=== PATIENT | male | born 2000 | race Asian ===

== ENCOUNTER 2020-07-16 00:53 | Inpatient (IN) ==
[2020-07-16 01:18] LABS: Basophils # (auto) 0.01 K/uL (0-0.2); Basophils % (auto) 0.1 %; Hematocrit (blood only) 49.3 % (42-52); Hemoglobin 17.3 g/dL (14.0-18.0); Immature Granulocytes # (auto) 0.03 K/uL (0.00-0.02); Immature Granulocytes % (auto) 0.2 %; Lymphocytes # (auto) 1.24 K/uL (1.2-3.4); Lymphocytes % (auto) 10.1 %; Mean Corpuscular Hgb Conc 35.1 g/dL (32-36); Mean Corpuscular Volume 91.3 fL (80-100); Mean Platelet Volume 10.2 fL (7.4-10.4); Monocytes # (auto) 0.56 K/uL (0.11-0.59); Monocytes % (auto) 4.5 %; Neutrophils # (auto) 10.47 K/uL (1.4-6.5); Neutrophils % (auto) 85.1 %; Platelet Count 265 K/uL (130-400); RDW Coefficient of Variation 11.9 % (11.5-14.5); RDW Standard Deviation 39.8 fL (36.4-46.3); White Blood Count 12.31 K/uL (4.8-10.8)
[2020-07-16 01:35] LABS: Albumin Level 4.6 gm/dl (3.4-5.0); BUN Creatinine Ratio 10.4 (10-20); Calcium 8.8 mg/dl (8.5-10.1); Creatinine Clr Calc Pharmacy 89.4 ml/min; Est GFR (African American) 109.9; Est GFR (Non-African American) 94.8; Potassium 3.5 mmol/L (3.5-5.1)
[2020-07-16 01:46] LABS: Acetaminophen < 2 ug/ml (10-30); Albumin Globulin Ratio 1.4 (0.9-2); Bilirubin,Total 0.8 mg/dl (0.2-1); Globulin 3.3 gm/dl (2.5-4.0); Thyroid Stimulating Hormone 0.179 uIu/ml (0.300-4.500); Total Protein 7.9 gm/dl (6.4-8.2)
[2020-07-16 01:47] LABS: Salicylate < 1.7 mg/dl (2.8-20)
[2020-07-16 01:58] LABS: T4 Free Thyroxine 1.31 ng/dl (0.8-1.6)
[2020-07-16 02:19] LABS: Appearance Urine Clear (Clear); Bilirubin Urine Negative (Negative); Blood Urine Negative (Negative); Color Urine Yellow; Glucose Urine UA Negative (Negative); Ketones Urine Trace (Negative); Leukocyte Esterase Urine Negative (Negative); Nitrite Urine Negative (Negative); Protein Urine Negative (Negative); Specific Gravity Urine 1.012 (1.000-1.030); Urobilinogen Urine Negative (Negative); pH Urine 6.5 (4.5-7.5)
[2020-07-16 02:39] LABS: Amphetamines+Metham, Urine Neg (Neg); Barbiturates, Urine Neg (Neg); Benzodiazepine, Urine Neg (Neg); Cocaine, Urine Neg (Neg); MDMA (Ecstacy), Urine Neg (Neg); Methadone, Urine Neg (Neg); Opiate, Urine Neg (Neg); Phencyclidine, Urine Neg (Neg)
--- NOTE | 2020-07-16 04:17 | Emergency Department Note ---
History of Present Illness General Chief complaint: Mental Health Evaluation Time Seen by Provider: 07/16/20 01:00 Source: patient and police Mode of arrival: other (Police cruiser) Limitations: no limitations History of Present Illness Provider complaint: Suicidal ideation This patient is a 20-year-old male who presents emergency department after calling 911 from his vehicle in a parked location telling the dispatcher that he intended to jump off a tigre in order to commit suicide. Patient states he has been feeling suicidal for some time because his parents do not love him. The thing he lives the most in this world is his car "because it just works and has no feelings." Patient states his family is "overse[place]" and he has no close contacts in this country. He states he did not actually intend to jump off of a tigre but rather to overdose on pills. He also states he did not actually have the pills in the vehicle with him. He did tell the service dispatcher that he intended to attack the officers upon their arrival. He states he was hoping this would keep them from trying to find him. He states he just wanted to talk to somebody that he "did not know" when he called 911. Per the 302 warrant, the patient requested to be shot by police on multiple occasions. He asked them what would happen if he reached for the gun. The patient states he intended to in his vehicle. He admits to seeing a psychiatrist about 6 years ago but "that tushar was just in it for the money." He admits he has a distressed for all medical providers due to his history with this psychiatrist. Patient declines to elaborate. He also will not go into detail about where his family lives or why he feels his parents do not love him. He denies any significant substance abuse however states he had 6 beers tonight. He states he does smoke cigarettes. Home Medications Home Medications Medication Instructions Recorded Confirmed Type No Known Home Medications 07/16/20 07/16/20 History Allergies Allergy/AdvReac Type Severity Reaction Status Date / Time No Known Allergies Allergy Unverified 07/16/20 02:12 Past Med/Surg History Medical History (Updated 07/16/20 @ 06:44 by Shari Redman MD) No significant past medical history Social History (Updated 07/16/20 @ 04:23 by Shari Redman MD) Smoking Status: Current some day smoker Tobacco Type: Cigarettes Hx Alcohol Use: Yes Preferred Language: Polish Communication Ability: Effective Maintenance Associate Required: No Beliefs That Will Affect Care: None current occupational status: student current occupation: economics student Feels Safe at Home: Yes Assistive Devices: Glasses Review of Systems See HPI for pertinent positives & negatives. and A total of 10 systems reviewed and were otherwise negative Physical Exam Vital Signs Vital Signs - 24 hr 07/16/20 00:53 07/16/20 02:41 07/16/20 04:00 Temperature 37.2 C Temperature Source Oral Pulse Rate 127 H Pulse Rate [Left Finger] 103 H 92 H Respiratory Rate 18 14 18 Respiratory Effort / Characteristics Non-Labored Spontaneous Respiratory Depth Normal Blood Pressure 102/77 Blood Pressure [Right Arm] 96/80 L 110/71 Blood Pressure Mean 85 Blood Pressure Mean [Right Arm] 85 84 Blood Pressure Position [Right Arm] Sitting Pulse Oximetry 99 99 100 Oxygen Delivery Method Room Air Room Air Room Air Sepsis Recent Fever Within 48 Hours No Sepsis New/Unexplained Change in Mental Status No Sepsis Action Taken by Nursing No Action Required Vital signs reviewed. General: Well-appearing 20 yo male, in no significant distress. HEENT: No scleral icterus, PERRLA, neck supple. Atraumatic. Cardiovascular: Regular rate and rhythm, no extra sounds. Pulmonary: Clear to auscultation bilaterally, normal work of breathing. Abdomen: Soft, nontender, nondistended, positive bowel sounds. Musculoskeletal: Atraumatic, no peripheral edema. Neurologic: Patient awake alert and oriented x 3 Psych: +SI, -HI Skin: Warm, dry, no rash Medical Decision Making Differential Diagnosis Mood disorder, infection, hypoglycemia, electrolyte abnormalities, cardiac sources, intracerebral event, toxicologic, trauma, neurologic, as well as other pathologies. Medical Records Attestation: I reviewed the patient's medical records. Home Medications Current Medication List: was personally reviewed by me Laboratory Data Attestation: I reviewed the patient's lab results. Result diagrams: 07/16/20 01:04 07/16/20 01:04 Lab Results 07/16/20 07/16/20 07/16/20 Range/Units 01:04 01:04 01:04 WBC 12.31 H (4.8-10.8) K/uL RBC 5.40 (4.7-6.1) M/uL Hgb 17.3 (14.0-18.0) g/dL Hct 49.3 (42-52) % MCV 91.3 (80-100) fL MCH 32.0 (25-34) pg MCHC 35.1 (32-36) g/dL RDW Std Deviation 39.8 (36.4-46.3) fL RDW Coeff of Rito 11.9 (11.5-14.5) % Plt Count 265 (130-400) K/uL MPV 10.2 (7.4-10.4) fL Immature Gran % (Auto) 0.2 % Neut % (Auto) 85.1 % Lymph % (Auto) 10.1 % Sac % (Auto) 4.5 % Eos % (Auto) 0.0 % Baso % (Auto) 0.1 % Neut # (Auto) 10.47 H (1.4-6.5) K/uL Lymph # (Auto) 1.24 (1.2-3.4) K/uL Sac # (Auto) 0.56 (0.11-0.59) K/uL Eos # (Auto) 0.00 (0-0.5) K/uL Baso # (Auto) 0.01 (0-0.2) K/uL Immature Gran # (Auto) 0.03 H (0.00-0.02) K/uL Sodium 141 (136-145) mmol/L Potassium 3.5 (3.5-5.1) mmol/L Chloride 107 (98-107) mmol/L Carbon Dioxide 27 (21-32) mmol/L Anion Gap 7.0 (3-11) BUN 11 (7-18) mg/dl Creatinine 1.10 (0.6-1.4) mg/dl Est Cr Clr Drug Dosing 89.4 ml/min Est GFR ( Amer) 109.9 Est GFR (Non-Af Amer) 94.8 BUN/Creatinine Ratio 10.4 (10-20) Glucose 87 (70-99) mg/dl Calcium 8.8 (8.5-10.1) mg/dl Total Bilirubin 0.8 (0.2-1) mg/dl AST 10 L (15-37) U/L ALT 19 (12-78) U/L Alkaline Phosphatase 83 (45-117) U/L Total Protein 7.9 (6.4-8.2) gm/dl Albumin 4.6 (3.4-5.0) gm/dl Globulin 3.3 (2.5-4.0) gm/dl Albumin/Globulin Ratio 1.4 (0.9-2) TSH 0.179 L (0.300-4.500) uIu/ml Free T4 1.31 (0.8-1.6) ng/dl Urine Color Urine Appearance (Clear) Urine pH (4.5-7.5) Ur Specific Cyclone (1.000-1.030) Urine Protein (Negative) Urine Glucose (UA) (Negative) Urine Ketones (Negative) Urine Blood (Negative) Urine Nitrite (Negative) Urine Bilirubin (Negative) Urine Urobilinogen (Negative) Ur Leukocyte Esterase (Negative) Salicylates < 1.7 L (2.8-20) mg/dl Urine Opiates Screen (Neg) Ur Methadone, Qual (Neg) Acetaminophen < 2 L (10-30) ug/ml Urine Barbiturates (Neg) Ur Phencyclidine (PCP) (Neg) U Amphetamin/Meth Scrn (Neg) MDMA (Ecstasy) Screen (Neg) U Benzodiazepines Scrn (Neg) Ur Cocaine Metabolite (Neg) U Marijuana (THC) Screen (Neg) Ethyl Alcohol mg/dL (0-3) mg/dl COVID-19 Eval Order SARS-CoV-2, RNA, NAAT (NEGATIVE) 07/16/20 07/16/20 07/16/20 Range/Units 01:04 02:00 02:00 WBC (4.8-10.8) K/uL RBC (4.7-6.1) M/uL Hgb (14.0-18.0) g/dL Hct (42-52) % MCV (80-100) fL MCH (25-34) pg MCHC (32-36) g/dL RDW Std Deviation (36.4-46.3) fL RDW Coeff of Rito (11.5-14.5) % Plt Count (130-400) K/uL MPV (7.4-10.4) fL Immature Gran % (Auto) % Neut % (Auto) % Lymph % (Auto) % Sac % (Auto) % Eos % (Auto) % Baso % (Auto) % Neut # (Auto) (1.4-6.5) K/uL Lymph # (Auto) (1.2-3.4) K/uL Sac # (Auto) (0.11-0.59) K/uL Eos # (Auto) (0-0.5) K/uL Baso # (Auto) (0-0.2) K/uL Immature Gran # (Auto) (0.00-0.02) K/uL Sodium (136-145) mmol/L Potassium (3.5-5.1) mmol/L Chloride (98-107) mmol/L Carbon Dioxide (21-32) mmol/L Anion Gap (3-11) BUN (7-18) mg/dl Creatinine (0.6-1.4) mg/dl Est Cr Clr Drug Dosing ml/min Est GFR ( Amer) Est GFR (Non-Af Amer) BUN/Creatinine Ratio (10-20) Glucose (70-99) mg/dl Calcium (8.5-10.1) mg/dl Total Bilirubin (0.2-1) mg/dl AST (15-37) U/L ALT (12-78) U/L Alkaline Phosphatase (45-117) U/L Total Protein (6.4-8.2) gm/dl Albumin (3.4-5.0) gm/dl Globulin (2.5-4.0) gm/dl Albumin/Globulin Ratio (0.9-2) TSH (0.300-4.500) uIu/ml Free T4 (0.8-1.6) ng/dl Urine Color Yellow Urine Appearance Clear (Clear) Urine pH 6.5 (4.5-7.5) Ur Specific Cyclone 1.012 (1.000-1.030) Urine Protein Negative (Negative) Urine Glucose (UA) Negative (Negative) Urine Ketones Trace H (Negative) Urine Blood Negative (Negative) Urine Nitrite Negative (Negative) Urine Bilirubin Negative (Negative) Urine Urobilinogen Negative (Negative) Ur Leukocyte Esterase Negative (Negative) Salicylates (2.8-20) mg/dl Urine Opiates Screen Neg (Neg) Ur Methadone, Qual Neg (Neg) Acetaminophen (10-30) ug/ml Urine Barbiturates Neg (Neg) Ur Phencyclidine (PCP) Neg (Neg) U Amphetamin/Meth Scrn Neg (Neg) MDMA (Ecstasy) Screen Neg (Neg) U Benzodiazepines Scrn Neg (Neg) Ur Cocaine Metabolite Neg (Neg) U Marijuana (THC) Screen Pos H (Neg) Ethyl Alcohol mg/dL 34.0 H (0-3) mg/dl COVID-19 Eval Order SARS-CoV-2, RNA, NAAT (NEGATIVE) 07/16/20 07/16/20 Range/Units 02:05 02:05 WBC (4.8-10.8) K/uL RBC (4.7-6.1) M/uL Hgb (14.0-18.0) g/dL Hct (42-52) % MCV (80-100) fL MCH (25-34) pg MCHC (32-36) g/dL RDW Std Deviation (36.4-46.3) fL RDW Coeff of Rito (11.5-14.5) % Plt Count (130-400) K/uL MPV (7.4-10.4) fL Immature Gran % (Auto) % Neut % (Auto) % Lymph % (Auto) % Sac % (Auto) % Eos % (Auto) % Baso % (Auto) % Neut # (Auto) (1.4-6.5) K/uL Lymph # (Auto) (1.2-3.4) K/uL Sac # (Auto) (0.11-0.59) K/uL Eos # (Auto) (0-0.5) K/uL Baso # (Auto) (0-0.2) K/uL Immature Gran # (Auto) (0.00-0.02) K/uL Sodium (136-145) mmol/L Potassium (3.5-5.1) mmol/L Chloride (98-107) mmol/L Carbon Dioxide (21-32) mmol/L Anion Gap (3-11) BUN (7-18) mg/dl Creatinine (0.6-1.4) mg/dl Est Cr Clr Drug Dosing ml/min Est GFR ( Amer) Est GFR (Non-Af Amer) BUN/Creatinine Ratio (10-20) Glucose (70-99) mg/dl Calcium (8.5-10.1) mg/dl Total Bilirubin (0.2-1) mg/dl AST (15-37) U/L ALT (12-78) U/L Alkaline Phosphatase (45-117) U/L Total Protein (6.4-8.2) gm/dl Albumin (3.4-5.0) gm/dl Globulin (2.5-4.0) gm/dl Albumin/Globulin Ratio (0.9-2) TSH (0.300-4.500) uIu/ml Free T4 (0.8-1.6) ng/dl Urine Color Urine Appearance (Clear) Urine pH (4.5-7.5) Ur Specific Cyclone (1.000-1.030) Urine Protein (Negative) Urine Glucose (UA) (Negative) Urine Ketones (Negative) Urine Blood (Negative) Urine Nitrite (Negative) Urine Bilirubin (Negative) Urine Urobilinogen (Negative) Ur Leukocyte Esterase (Negative) Salicylates (2.8-20) mg/dl Urine Opiates Screen (Neg) Ur Methadone, Qual (Neg) Acetaminophen (10-30) ug/ml Urine Barbiturates (Neg) Ur Phencyclidine (PCP) (Neg) U Amphetamin/Meth Scrn (Neg) MDMA (Ecstasy) Screen (Neg) U Benzodiazepines Scrn (Neg) Ur Cocaine Metabolite (Neg) U Marijuana (THC) Screen (Neg) Ethyl Alcohol mg/dL (0-3) mg/dl COVID-19 Eval Order Covid19 [facility] SARS-CoV-2, RNA, NAAT NEGATIVE (NEGATIVE) Blood Pressure Blood Pressure Findings: Normal blood pressure Blood Pressure Disposition: did not require urgent referral MDM Narrative This patient was evaluated and appeared to be in no significant distress. He was calm and cooperative on my evaluation. Patient was medically cleared and evaluated by the mental health casework specialist. The patient's intentions are seemingly unclear and he does change his story. His behavior seems somewhat erratic tonight. He is not clearly voluntary for admission, he states repetitively he would like to go home. I believe the patient is an imminent danger to himself and impulsive. The 302 will be upheld as I do not believe he is reliable to sign in on a 201. Patient has been referred to [facility] for inpatient care. Impression & Plan Suicidal ideation Discharge Plan Visit Data Chief Complaint: Mental Health Evaluation ED Provider: Feroz,Shari B Discharge Problem: Suicidal ideation Patient Disposition: Admitted As Inpatient Discharge Instructions Interventions: ED Discharge Assessment Last Done: 07/16/20 05:22
[2020-07-16 05:23] VITALS: O2SAT 99
[2020-07-16] MEDS ORDERED: hydrOXYzine HCl 25 MG TAB PO PRN (05:57)
[2020-07-16] MEDS ORDERED: BISMUTH SUBSALICYLATE LIQD 236 ML PO PRN (05:57)
[2020-07-16] MEDS ORDERED: MAGNESIUM HYDROXIDE SUSP 30 ML UDC PO PRN (05:57)
[2020-07-16] MEDS ORDERED: ACETAMINOPHEN 325 MG TAB PO PRN (05:57)
[2020-07-16] MEDS ORDERED: ALUMINUM/MAGNESIUM SUSP 30 ML UDC PO PRN (05:57)
[2020-07-16] MEDS ORDERED: SODIUM CHLORIDE 0.65% NA SOLN 45 ML (OCEAN) PRN (05:57)
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
[2020-07-16] MEDS ORDERED: NICOTINE POLACRILEX 2 MG GUM MT PRN (12:15)
--- NOTE | 2020-07-17 13:11 | Psychiatric Progress Note ---
Date of Service July 17, 2020 Impression / Recommendations Impression 20-year-old [employer] student from [place] who was involuntarily committed after calling 911 and reporting suicidal ideation with multiple plans, including suicide by coppersmith helper, and threatening to attack the police if they came to where he was parked in his car. He was poorly cooperative in the ER, and has been vague and evasive with staff, refusing contact with the University or his family. He is minimizing his presenting symptoms and stating that his mood is now improved, and aspects of his story did not make sense; for example he states that after talking to his friend in [place] on the phone yesterday, he decided that he wanted to live and wanted to get help, but he then called 911 and threatened to attack police, and asked police to shoot him multiple times when they arrived to assist him. He then refused to sign into the hospital and had to be involuntarily committed. Inpatient treatment is medically necessary due to the severity of presenting symptoms and risk for suicide if discharged prematurely. As of 07/17/2020 the patient was agreeing to a trial of antidepressant medications. However, at the same time, he remains reluctant to allow us to refer him for aftercare, indicates that he would like to arrange this on his own. He also is reluctant to speak to his parents, although he did allow a friend to contact them and let them know that he is in the hospital. Patient makes frequent refe rences to being socially awkward and otherwise out of step with his peers and other people. He also has difficulty maintaining eye contact, and his thinking at times appears to be somewhat idiosyncratic. He may follow on the autism spectrum, and there do seem to be certain characterologic features that may be in play here. As described by the patient, his mood alterations seem to be dependent on various situations, and the situations that seem to trigger suicidal thoughts or feelings of depression or feelings of anger have to do with feelings of loneliness, rejection, and signals that indicate that he may be an adequate. (1) Suicidal ideation: 07/16 -continue involuntary inpatient treatment, gather information toward the need for further involuntary commitment. -Suicide checks for safety. -Encourage group attendance and participation, work on healthy coping skills and discharge safety plan. -Reviewed recommendations to secure firearms, as well as implications of involuntary commitment (patient can no longer legally own firearms in [place]). We will need to involve roommates or other support to ensure this is done prior to discharge. -Recommend family meeting with parents, which patient is refusing. He did agree to a meeting with one of his roommates, and collateral information re: recent mood, depressive symptoms, SI would be helpful to clarify diagnosis. 07/17 -The patient points out that his thoughts of suicide are intermittent and are largely dependent on situational factors. He describes his current experience in the hospital as being positive. He finds the staff and other patients to be supportive, and he notes that within this context he is not having thoughts of suicide. -Somewhat illogically, the patient has refused to cooperate with our efforts to arrange aftercare. He says that he feels this is something he needs to do on his own. He also is continuing to refuse to talk with his parents. Once pointed out that he says that he is grieving the fact that his parents are not supportive while, at the same time, refusing to talk to them when they offered to help is internally inconsistent. The patient explains that at this point he no longer feels any particular affinity to his parents but, instead, just feels sad that they were not available to him as a child. The patient also explains that in his experience when he talks to his parents it usually devolves into them making depreciating statements or they are simply essentially "ordering" him to take certain steps. (2) Depression: 07/16 -depression NOS, differential includes major depressive disorder, bipolar disorder, personality disorder, adjustment disorder. -Patient endorsed symptoms of MDD yesterday in the ER, but today is stating his mood was only low for the past week in the context of multiple stressors, and has now resolved. Collateral information from roommates would be helpful to cl arify recent mood symptoms and behavioral changes. -Patient is not interested in therapy or outpatient psychiatric care, refusing recommendations for outpatient treatment. -Recommend avoiding alcohol and other recreational drugs due to risk of worsening mood and impairing judgment in the context of multiple stressors/SI. 07/17 -I agree with the diagnosis of unspecified mood disorder. He does not seem to have any history of oly or hypomania, and the difficulty that he describes adjusting socially as been present since latency, so I am not sure that we could call this an adjustment disorder. As above, I believe that the patient may fall at the high functioning and of the autism spectrum. He describes lifelong difficulty negotiating social interactions. He strenuously avoids eye contact, and notes that he is always "awkward" in situations in which he cannot be reassured of acceptance. Also, the patient reports that he has a long-term history of difficulty regulating his mood, and that his mood is largely dependent upon whether he feels excepted, loved, appreciated, and valued. Feelings of abandonment or rejection or failure tend to precipitate depressive symptoms and sometimes thoughts of suicide. Accordingly, there are elements that suggest certain pathologic character traits including borderline personality traits and avoidant personality traits. (The symptoms described seem to be greater and more pervasive than what might be expected in a social anxiety disorder.) -The patient has agreed today to a trial of antidepressant medication. After discussing various options he agreed to venlafaxine ER 37.5 mg, and we will titrate as indicated and tolerated. Confounding this decision is the fact that the patient still is telling the social work staff that while he will take the medicine he will not agree to allow them to schedule aftercare arrangements. This been pointed out to him that he cannot be prescribed the medications without a plan for him to be followed up on an outpatient basis, and he has responded by saying things such as "I can take care of that myself." However, when invited to take care of it himself he does not do it. Risk Factors Assessment Male: Yes : No Do You Have Access To A Gun?: Yes (Owns to guns, at his [facility]) Health Problems: No Mental Health Diagnoses: No Substance Use Disorders: No Previous Attempt: Yes Previous Attempt; Highly Lethal: No Family History of Suicide: No Previous Psychiatric Hospitalization: No Hopelessness: No Smoker: Yes Protective Factors Assessment : No Responsible for Young Children: No Employed: No Stable Relationships: No Supportive Family: No Good Rapport with Provider: No Interval History Chief Complaint "I was thinking about suicide". Review of Systems Sleep Information Total Hours of Sleep: 8.25 Sleep Comments: admitted at 0526 Meal Information Percent Meal Consumed - Breakfast: 100 Percent Meal Consumed - Lunch: 100 Percent Meal Consumed - Dinner: 100 Subjective Subjective Patient was seen & assessed and interval progress reviewed with treatment team. I met with the patient privately in order to assess his current mental status, evaluate his response to treatment, coordinate any necessary changes in the patient's treatment plan together with the patient; address issues, questions and concerns that may arise. We began by my asking the patient to summarize the circumstances that led to the admission. The patient reported that he believes his main problem is difficulty regulating his mood. He notes that problems began in childhood when his parents began to have serious marital problems. He explains, "they were fighting all the time. My father left. He did come back. They got . They remarried." He also notes that he often felt socially isolated, and felt that his parents were primarily absorbed in their business efforts and in their own lives, and often were not available to provide emotional support and guidance. He notes that they do provide substantial financial assistance, but was always aware that his peers seem to have parents to were much more involved and caring. He tells me that as a preteen aged child he made a suicide attempt or gesture by taking a pair of children's scissors and tried to cut his wrist, although he did not break the skin. The patient notes that he is not made any subsequent suicide attempts, but frequently has suicidal ideation. He also reports that his mood tends to plummet when he is experiencing feelings of failure, isolation, or rejection. For example, he re ports that he has made several friends here in [place], but each of them has girlfriends and seemed to refer her to spend most of their time going out with the girlfriends. The patient, who does not have a girlfriend, feels left out and left behind. Within this context, he finds himself feeling depressed and irritable. He may have troubles sleeping, and at times he uses alcohol to console himself. (He claims that he only uses alcohol about once a month and not to the point of intoxication.) When asked to tell me more about his thoughts of suicide, the patient smiled and said, "well, I was going to take an overdose of medicines. But I did not have any medicines." The patient also said that he had been feeling particularly lonely and abandoned when the most recent thought of suicide occurred. His thought was to find a clip of some sort and jump to his . He drove out into the country, took beer with him the idea of getting intoxicated and then finding the courage to jump. He explained that he changed his mind, recognize that he could not bring himself to actually act on his impulses, and called 911 for help. Other stressors include the fact that he apparently has little interest in his college major, namely economics. His explanation for entering economics in the first place was that his grades in public school were poor and, as he put it, "economics was the easiest thing to get into." The patient also tells me that he likes life in [facility] much better than in his hometown near [facility]. He notes that his parents have made it clear that they are not willing to support him unless he is in school, and so he says his long-term plan is to finish his degree at [employer] and then moved to either [place] or [place] in order to enter graduate school, possibly in [place]. I talked to the patient about the fact that almost all people at his approximate age worry about their future. They become aware that their childhood is coming to a close and they faced a number of major decisions, such as career, marriage or other romantic relationships. Uncertainty about the future and what the future may hold for them can sometimes take on monumental proportions, and that from the perspective of age and experience I assured him that it is always possible to reinvent oneself, and decisions that one may feel that one needs to make at the beginning of their life are not nearly as important as people assume them to be. We talked about the movie "The Graduate" as a way of emphasizing that the kinds of concerns she is going through are on at all uncommon for persons his age, and I also assured him that things get better as time goes on. We discussed treatment for depression. He asked a number of questions about medication options and we agreed to try venlafaxine ER 37.5 mg. Material risks and anticipated benefits of venlafaxine were reviewed with the patient and he has several questions and then indicated understanding. Physical Exam Psychiatric Orientation: alert, oriented x 3 and cooperative Apperance: appropriately dressed, appropriately groomed and appeared stated age Eye Contact: + poor eye contact Motor Behavior: steady gait and station Patient's speech was somewhat slow, but was spontaneous and delivered at a normal volume. Affect: + depressed affect However, the patient smiled appropriately a number of times during the encounter. "My mood is pretty good today. This is a special place. He goes up and down depending on what is going on in my life." Thought Process: goal directed thought process Thought Content: reality based without delusions; no delusions Suicidal Thoughts: denies suicidal thoughts The patient reports that he is not currently having any suicidal thoughts. He does recognize that when he returns home he will face many of the stressors that he links with his mood alterations. However, he says that he feels that he is prepared to face them. Homicidal Thoughts: denies homicidal thoughts Hallucinations: no auditory hallucinations Cognition: recent memory grossly intact, remote memory grossly intact, attention grossly intact and language grossly intact Estimated Intelligence: + above average estimated intelligence Insight: + limited insight Judgement: + fair judgement Vital Signs (Past 24 Hours) Last Vital Signs Temp 37 C 07/17/20 06:35 Pulse 70 07/17/20 06:35 Resp 17 07/17/20 06:35 BP 106/63 07/17/20 06:35 Pulse Ox 99 07/16/20 05:58 Results & Data ([facility]) Current Inpatient Medications Current Inpatient Medications: Current Inpatient Medications Acetaminophen (Acetaminophen 325 Mg Tab) 650 mg PO Q4H PRN PRN Reason: Headache or Minor Fever Stop: 08/15/20 05:56 Al Hydrox/Mg Hydrox/Simethicone (Aluminum/Magnesium Susp 30 Ml Udc) 30 ml PO Q4H PRN PRN Reason: GI Upset Stop: 08/15/20 05:56 Bismuth Subsalicylate (Bismuth Subsalicylate Liqd 236 Ml) 15 ml PO PRN PRN PRN Reason: Loose Stool Stop: 08/15/20 05:56 Hydroxyzine HCl (Hydroxyzine Hcl 25 Mg Tab) 50 mg PO HSZ PRN PRN Reason: Insomnia Stop: 08/15/20 05:56 Hydroxyzine HCl (Hydroxyzine Hcl 25 Mg Tab) 25 mg PO Q4H PRN PRN Reason: Anxiety Stop: 08/15/20 05:56 Magnesium Hydroxide (Magnesium Hydroxide Susp 30 Ml Udc) 30 ml PO DAILY PRN PRN Reason: Constipation Stop: 08/15/20 05:56 Nicotine Polacrilex (Nicotine Polacrilex 2 Mg Gum) 1 piece MT PRN PRN PRN Reason: nicotine cravings Stop: 08/15/20 12:14 Sodium Chloride (Sodium Chloride 0.65% Na Soln 45 Ml ([place])) 1 - 2 sprays NA PRN PRN PRN Reason: Nasal Dryness/Congestion Stop: 08/15/20 05:56 Venlafaxine HCl (Venlafaxine Hcl Xr 37.5 Mg Capxr) 37.5 mg PO QAM GERRI Stop: 08/16/20 11:29 Mental Health & Subst Abuse Tx Therapist Name of Therapist: None Audio/Video Technician Name of Audio/Video Technician: None Post Discharge Appointments Primary Care Physician Name Of Family Doctor: Deb (1) Depression Depression Type: unspecified Qualified Code(s): F32.9 - Major depressive disorder, single episode, unspecified
[2020-07-17] MEDS: VENLAFAXINE HCL XR 37.5 MG CAPXR PO SCH (14:38)
[2020-07-18 01:18] LABS: Marijuana Quant, GCMS Urine 104 ng/mL (<5)
--- NOTE | 2020-07-18 07:52 | Psychiatric Progress Note ---
Date of Service July 18, 2020 Impression / Recommendations Impression 20-year-old [employer] student from [place] who was involuntarily committed after calling 911 and reporting suicidal ideation with multiple plans, including suicide by copy cutter, and threatening to attack the police if they came to where he was parked in his car. He was poorly cooperative in the ER, and has been vague and evasive with staff, refusing contact with the University or his family. He has minimized his presenting symptoms and is unwilling to allow contact with his family or referrals for outpatient treatment. Although he agreed to a trial of venlafaxine XR yesterday, he is now stating he feels high on it, like he did when he used MDMA, and does not want to continue the medication. He continues to give conflicting reports at times, there does appear to be a characterological component. Inpatient treatment remains medically necessary due to the severity of his symptoms and risk for suicide if discharged prematurely, and his unwillingness to engage fully in treatment or allow appropriate interventions/aftercare. (1) Suicidal ideation: 07/16 -continue involuntary inpatient treatment, gather information toward the need for further involuntary commitment. -Suicide checks for safety. -Encourage group attendance and participation, work on healthy coping skills and discharge safety plan. -Reviewed recommendations to secure firearms, as well as implications of involuntary commitment (patient can no longer legally own firearms in [place]). We will need to involve roommates or other support to ensure this is done prior to discharge. -Recommend family meeting with parents, which patient is refusing. He did agree to a meeting with one of his roommates, and collateral information re: recent mood, depressive symptoms, SI would be helpful to clarify diagnosis. 07/17 -The patient points out that his thoughts of suicide are intermittent and are largely dependent on situational factors. He describes his current experience in the hospital as being positive. He finds the staff and other patients to be supportive, and he notes that within this context he is not having thoughts of suicide. -Somewhat illogically, the patient has refused to cooperate with our efforts to arrange aftercare. He says that he feels this is something he needs to do on his own. He also is continuing to refuse to talk with his parents. Once pointed out that he says that he is grieving the fact that his parents are not supportive while, at the same time, refusing to talk to them when they offered to help is internally inconsistent. The patient explains that at this point he no longer feels any particular affinity to his parents but, instead, just feels sad that they were not available to him as a child. The patient also explains that in his experience when he talks to his parents it usually devolves into them making depreciating statements or they are simply essentially "ordering" him to take certain steps. 07/18 -Patient is denying SI here, but has done little to address the factors that led to his suicide plans/behavior at the time of presentation. He continues to refuse outpatient treatment and contact with his family. He did allow contact with his roommate yesterday, who agreed to secure the gun so the patient would not have access to them. (2) Depression: 07/16 -depression NOS, differential includes major depressive disorder, bipolar disorder, personality disorder, adjustment disorder. -Patient endorsed symptoms of MDD yesterday in the ER, but today is stating his mood was only low for the past week in the context of multiple stressors, and has now resolved. Collateral information from roommates would be helpful to clarify recent mood symptoms and behavioral changes. -Patient is not interested in therapy or outpatient psychiatric care, refusing recommendations for outpatient treatment. -Recommend avoiding alcohol and other recreational drugs due to risk of worsening mood and impairing judgment in the context of multiple stressors/SI. 07/17 -I agree with the diagnosis of unspecified mood disorder. He does not seem to have any history of loy or hypomania, and the difficulty that he describes adjusting socially as been present since latency, so I am not sure that we could call this an adjustment disorder. As above, I believe that the patient may fall at the high functioning and of the autism spectrum. He describes lifelong difficulty negotiating social interactions. He strenuously avoids eye contact, and notes that he is always "awkward" in situations in which he cannot be reassured of acceptance. Also, the patient reports that he has a long-term history of difficulty regulating his mood, and that his mood is largely dependent upon whether he feels excepted, loved, appreciated, and valued. Feelings of abandonment or rejection or failure tend to precipitate depressive symptoms and sometimes thoughts of suicide. Accordingly, there are elements that suggest certain pathologic character traits including borderline personality traits and avoidant personality traits. (The symptoms described seem to be greater and more pervasive than what might be expected in a social anxiety disorder.) -The patient has agreed today to a trial of antidepressant medication. After discussing various options he agreed to venlafaxine ER 37.5 mg, and we will titrate as indicated and tolerated. Confounding this decision is the fact that the patient still is telling the social work staff that while he will take the medicine he will not agree to allow them to schedule aftercare arrangements. This been pointed out to him that he cannot be prescribed the medications without a plan for him to be followed up on an outpatient basis, and he has responded by saying things such as "I can take care of that myself." However, when invited to take care of it himself he does not do it. 07/18 -patient unwilling to continue medication, and states that the 1 dose of venlafaxine XR he received yesterday has made him feel like he is high on MDMA. Likewise, he is refusing any outpatient follow-up, so even if he were willingly taking medication here, he does not have a safe discharge plan for ongoing management. Discontinue medication, and continue to provide education about his diagnosis and the recommended treatment. Risk Factors Assessment Male: Yes : No Do You Have Access To A Gun?: Yes (Owns to guns, at his [facility]) Health Problems: No Mental Health Diagnoses: No Substance Use Disorders: No Previous Attempt: Yes Previous Attempt; Highly Lethal: No Family History of Suicide: No Previous Psychiatric Hospitalization: No Hopelessness: No Smoker: Yes Protective Factors Assessment : No Responsible for Young Children: No Employed: No Stable Relationships: No Supportive Family: No Good Rapport with Provider: No Interval History Identifying Information DONALD CALDERON is a 20-year-old [employer] student from [employer], who currently lives in [place], has a history of psychiatric treatment years ago (refused to give details), and was admitted on 07/16/20 05:08 on a 302 involuntary commitment for suicidal ideation and threats to attack police and kill himself. Chief Complaint "Strange, the medicine kind of threw me off". Review of Systems Sleep Information Total Hours of Sleep: 8 Sleep Comments: admitted at 0526 Meal Information Percent Meal Consumed - Breakfast: 100 Percent Meal Consumed - Lunch: 100 Percent Meal Consumed - Dinner: 100 Subjective Subjective Patient was seen & assessed and interval progress reviewed with nursing and social work. Staff report he started venlafaxine XR yesterday, but told staff he felt like he was on "libertarian drugs," and would not allow social work to make referrals for outpatient treatment. He continues to refuse to sign releases for his parents, but did have a meeting with the social media developer and his roommate by phone. He was quiet throughout the meeting, and when asked to identify ways his roommate could help support him, he asked him to get his car fixed so he could go racing. His roommate encouraged him to get therapy, which the patient continued to refuse. His roommate stated he has received multiple calls from the patient's parents, who are worried about him, and the patient asked his friend to tell his parents he was in isolation and could not talk to them. His roommate did agree to secure the patient's guns so that he will not have access. He went to group therapy and talked about his family, lack of support, and difficulty taking about his emotions. He also reported he does a lot of drugs, but wouldn't disclose further detail, stating he liked using drugs, and wasn't interested in stopping or substance abuse treatment. On my assessment, he states he feels like he is high, saying he used to use a lot of MDMA, and about 30 minutes after he took the Effexor yesterday, he started feeling like he was on ecstasy. He describes dry mouth, clenching his teeth, feeling "nothing, but I can pretend I'm happy," which he could not do before. He says his emotion is "like water." He does not want to take medication, stating he does not want to rely on anything to get better, and would rather "change my environment, go on a trip." He states he felt "very happy" his first day on the unit, which he t hinks was due to a change in environment. When challenged as to how he would address mood symptoms if he were not in the hospital, he says he would take a trip to [place] or [place]. He says this is realistic for him, and he does not for see any barriers to doing this. He denies suicidal thoughts since admission, stating "it was just multiple things piled up." He does think it has been helpful to talk to others about his stressors, noting he talked to a nurse last evening and found that helpful. When encouraged to consider working with a counselor or therapist outside the hospital, he is adamantly opposed, stating he does not want to "talk to professionals, I only want to talk to normal people." He says he does not want to "a label," and will not allow us to arrange any aftercare. He continues to refuse contact with his parents. Although he reports history of drug abuse, he states he has not used MDMA in at least the past year. Physical Exam Psychiatric Orientation: alert and cooperative Apperance: appropriately dressed and appropriately groomed Tall thin male, hair dyed bright blonde. Eye Contact: good eye contact Motor Behavior: steady gait and station and no abnormal motor movements Very soft speech, whispering, had asked him to repeat things several times. Odd, intense affect, leaning forward with intense eye contact. Appears depressed. "I feel nothing." Mildly loose, gives conflicting reports Thought Content: + cognitive distortions Suicidal Thoughts: denies suicidal thoughts Homicidal Thoughts: denies homicidal thoughts Hallucinations: no auditory hallucinations and no visual hallucinations Cognition: recent memory grossly intact and language grossly intact Insight: + impaired insight Judgement: + impaired judgement Vital Signs (Past 24 Hours) Last Vital Signs Temp 36.5 C 07/18/20 06:41 Pulse 77 07/18/20 06:42 Resp 16 07/18/20 06:41 BP 120/78 07/18/20 06:42 Pulse Ox 99 07/16/20 05:58 Results & Data ([facility]) Laboratory Results Laboratory Results - last 24 hr 07/16/20 02:00 U Marijuana THC Carboxy 104 H Drug Screen Comment SEE NOTE Current Inpatient Medications Current Inpatient Medications: Current Inpatient Medications Acetaminophen (Acetaminophen 325 Mg Tab) 650 mg PO Q4H PRN PRN Reason: Headache or Minor Fever Stop: 08/15/20 05:56 Al Hydrox/Mg Hydrox/Simethicone (Aluminum/Magnesium Susp 30 Ml Udc) 30 ml PO Q4H PRN PRN Reason: GI Upset Stop: 08/15/20 05:56 Bismuth Subsalicylate (Bismuth Subsalicylate Liqd 236 Ml) 15 ml PO PRN PRN PRN Reason: Loose Stool Stop: 08/15/20 05:56 Hydroxyzine HCl (Hydroxyzine Hcl 25 Mg Tab) 50 mg PO HSZ PRN PRN Reason: Insomnia Stop: 08/15/20 05:56 Hydroxyzine HCl (Hydroxyzine Hcl 25 Mg Tab) 25 mg PO Q4H PRN PRN Reason: Anxiety Stop: 08/15/20 05:56 Magnesium Hydroxide (Magnesium Hydroxide Susp 30 Ml Udc) 30 ml PO DAILY PRN PRN Reason: Constipation Stop: 08/15/20 05:56 Nicotine Polacrilex (Nicotine Polacrilex 2 Mg Gum) 1 piece MT PRN PRN PRN Reason: nicotine cravings Stop: 08/15/20 12:14 Sodium Chloride (Sodium Chloride 0.65% Na Soln 45 Ml (Keats)) 1 - 2 sprays NA PRN PRN PRN Reason: Nasal Dryness/Congestion Stop: 08/15/20 05:56 Venlafaxine HCl (Venlafaxine Hcl Xr 37.5 Mg Capxr) 37.5 mg PO QAM GERRI Stop: 08/16/20 11:29 Last Admin: 07/17/20 14:38 Dose: 37.5 mg Documented by: Mental Health & Subst Abuse Tx Therapist Name of Therapist: None Vascular Technologist Name of Vascular Technologist: None Post Discharge Appointments Primary Care Physician Name Of Family Doctor: [facility] Primary Care Time of Appointment with PCP: Follow up as needed Provider Appointment Comment: [facility] Contact Information Discharge Discharge Address: [address] [place] [address] (1) Depression Depression Type: unspecified Qualified Code(s): F32.9 - Major depressive disorder, single episode, unspecified
[2020-07-18] MEDS: VENLAFAXINE HCL XR 37.5 MG CAPXR PO SCH (10:42)
[2020-07-18] MEDS: hydrOXYzine HCl 25 MG TAB PO PRN (22:07)
--- NOTE | 2020-07-19 06:27 | Psychiatric Progress Note ---
Date of Service July 19, 2020 Impression / Recommendations Impression 20-year-old [employer] student from [place] who was involuntarily committed after calling 911 and reporting suicidal ideation with multiple plans, including suicide by helicopter crew chief, and threatening to attack the police if they came to where he was parked in his car. He was poorly cooperative in the ER, and has been vague and evasive with staff, refusing contact with the University or his family. He has minimized his presenting symptoms and is unwilling to allow contact with his family or referrals for outpatient treatment. Although he agreed to a trial of venlafaxine XR on Monday, he only took 1 dose and said he felt high on it, like he did when he used MDMA, and refused to continue the medication trial. He continues to refuse outpatient treatment and coordination with the [facility]. He continues to give conflicting reports and there does appear to be a characterological component. Inpatient treatment remains medically necessary due to the severity of his symptoms and risk for suicide if discharged pee aturely, and his unwillingness to engage fully in treatment or allow appropriate interventions/aftercare. (1) Suicidal ideation: 07/16 -continue involuntary inpatient treatment, gather information toward the need for further involuntary commitment. -Suicide checks for safety. -Encourage group attendance and participation, work on healthy coping skills and discharge safety plan. -Reviewed recommendations to secure firearms, as well as implications of involuntary commitment (patient can no longer legally own firearms in [place]). We will need to involve roommates or other support to ensure this is done prior to discharge. -Recommend family meeting with parents, which patient is refusing. He did agree to a meeting with one of his roommates, and collateral information re: recent mood, depressive symptoms, SI would be helpful to clarify diagnosis. 07/17 -The patient points out that his thoughts of suicide are intermittent and are largely dependent on situational factors. He describes his current experience in the hospital as being positive. He finds the staff and other patients to be supportive, and he notes that within this context he is not having thoughts of suicide. -Somewhat illogically, the patient has refused to cooperate with our efforts to arrange aftercare. He says that he feels this is something he needs to do on his own. He also is continuing to refuse to talk with his parents. Once pointed out that he says that he is grieving the fact that his parents are not supportive while, at the same time, refusing to talk to them when they offered to help is internally inconsistent. The patient explains that at this point he no longer feels any particular affinity to his parents but, instead, just feels sad that they were not available to him as a child. The patient also explains that in his experience when he talks to his parents it usually devolves into them making depreciating statements or they are simply essentially "ordering" him to take certain steps. 07/18 -Patient is denying SI here, but has done little to address the factors that led to his suicide plans/behavior at the time of presentation. He continues to refuse outpatient treatment and contact with his family. He did allow contact with his roommate yesterday, who agreed to secure the gun so the patient would not have access to them. 07/19 -Patient continues to deny SI, and is able to identify ways to increase his supports (reconnecting with friends he has not been in touch with recently). (2) Depression: 07/16 -depression NOS, differential includes major depressive disorder, bipolar disorder, personality disorder, adjustment disorder. -Patient endorsed symptoms of MDD yesterday in the ER, but today is stating his mood was only low for the past week in the context of multiple stressors, and has now resolved. Collateral information from roommates would be helpful to clarify recent mood symptoms and behavioral changes. -Patient is not interested in therapy or outpatient psychiatric care, refusing recommendations for outpatient treatment. -Recommend avoiding alcohol and other recreational drugs due to risk of worsening mood and impairing judgment in the context of multiple stressors/SI. 07/17 -I agree with the diagnosis of unspecified mood disorder. He does not seem to have any history of oly or hypomania, and the difficulty that he describes adjusting socially as been present since latency, so I am not sure that we could call this an adjustment disorder. As above, I believe that the patient may fall at the high functioning and of the autism spectrum. He describes lifelong difficulty negotiating social interactions. He strenuously avoids eye contact, and notes that he is always "awkward" in situations in which he cannot be reassured of acceptance. Also, the patient reports that he has a long-term history of difficulty regulating his mood, and that his mood is largely dependent upon whether he feels excepted, loved, appreciated, and valued. Feelings of abandonment or rejection or failure tend to precipitate depressive symptoms and sometimes thoughts of suicide. Accordingly, there are elements that suggest certain pathologic character traits including borderline personality traits and avoidant personality traits. (The symptoms described seem to be greater and more pervasive than what might be expected in a social anxiety disorder.) -The patient has agreed today to a trial of antidepressant medication. After discussing various options he agreed to venlafaxine ER 37.5 mg, and we will titrate as indicated and tolerated. Confounding this decision is the fact that the patient still is telling the social work staff that while he will take the medicine he will not agree to allow them to schedule aftercare arrangements. This been pointed out to him that he cannot be prescribed the medications without a plan for him to be followed up on an outpatient basis, and he has responded by saying things such as "I can take care of that myself." However, when invited to take care of it himself he does not do it. 07/18 -patient unwilling to continue medication, and states that the 1 dose of venlafaxine XR he received yesterday has made him feel like he is high on MDMA. Likewise, he is refusing any outpatient follow-up, so even if he were willingly taking medication here, he does not have a safe discharge plan for ongoing management. Discontinue medication, and continue to provide education about his diagnosis and the recommended treatment. 07/19 -patient gave conflicting reports about his willingness for treatment, initially asking about options for medications to target depressive symptoms and suicidal thoughts, but when these were reviewed, said he would not take medication and would not agree to outpatient mental health treatment. Again reviewed his diagnosis, treatment recommendations, data regarding the benefits of combining medications and therapy for optimal response/recovery, and the importance of having a support network and good safety plan. He is refusing antidepressant medication and outpatient mental health treatment. Encouraged him to continue to attend participating groups, and to consider excepting recommendations for outpatient treatment. Risk Factors Assessment Male: Yes : No Do You Have Access To A Gun?: Yes (Owns to guns, at his [facility]) Health Problems: No Mental Health Diagnoses: No Substance Use Disorders: No Previous Attempt: Yes Previous Attempt; Highly Lethal: No Family History of Suicide: No Previous Psychiatric Hospitalization: No Hopelessness: No Smoker: Yes Protective Factors Assessment : No Responsible for Young Children: No Employed: No Stable Relationships: No Supportive Family: No Good Rapport with Provider: No Interval History Identifying Information DONALD CALDERON is a 20-year-old [employer] student from [place], who currently lives in [place], has a history of psychiatric treatment years ago (refused to give details), and was admitted on 07/16/20 05:08 on a 302 involuntary commitment for suicidal ideation and threats to attack police and kill himself. Chief Complaint "Uplifting". Review of Systems Sleep Information Total Hours of Sleep: 7.5 Sleep Comments: admitted at 0526 Meal Information Percent Meal Consumed - Breakfast: 100 Percent Meal Consumed - Lunch: 100 Percent Meal Consumed - Dinner: 100 Subjective Subjective Patient was seen & assessed and interval progress reviewed with nursing and social work. Staff report he attended and participated in all unit programming yesterday, rated his mood a 03/20, and described feeling "peaceful." He spent free time in the day room socializing with peers, and showered independently. On my assessment today, he reports he is feeling better, no longer feels like he is under the influence of "republican drugs," and describes his mood as "uplifting." He says groups are going well, "everyone's been very kind." He says it is helping to be around others, but continues to refuse outpatient therapy or psychiatric care. He then asks if he could have "something to protect me from harming myself again, like a medication." Again reviewed the recommendations for antidepressant medication, and that this would require outpatient treatment, which she continues to adamantly refuse, and then states "I do not want to be reliant on a medication." He was unable to explain the contradicting statements. Discussed his estimated length of stay, and that as his involuntary commitment will overnight tomorrow night, we would consider discharge tomorrow. He feels he will be ready, and states he plans to reach out to some friends he has not talked to, as he has been distancing himself from others. He denies suicidal thoughts and feels safe in the hospital. States sleep was good last night, and reports good appetite. Physical Exam Psychiatric Orientation: alert and cooperative Apperance: appropriately dressed, appropriately groomed and appeared stated age Eye Contact: good eye contact Motor Behavior: steady gait and station and no abnormal motor movements Speech: normal rate/rhythm/volume of speech Affect: + blunted affect " Thought Process: goal directed thought process Makes conflicting statements regarding medications and desire for treatment Suicidal Thoughts: denies suicidal thoughts Homicidal Thoughts: denies homicidal thoughts Hallucinations: no auditory hallucinations Cognition: attention grossly intact and language grossly intact Insight: + limited insight Judgement: + limited judgement Vital Signs (Past 24 Hours) Last Vital Signs Temp 36.9 C 07/18/20 20:00 Pulse 77 07/18/20 06:42 Resp 16 07/18/20 06:41 BP 120/78 07/18/20 06:42 Pulse Ox 99 07/16/20 05:58 Results & Data ([facility]) Current Inpatient Medications Current Inpatient Medications: Current Inpatient Medications Acetaminophen (Acetaminophen 325 Mg Tab) 650 mg PO Q4H PRN PRN Reason: Headache or Minor Fever Stop: 08/15/20 05:56 Al Hydrox/Mg Hydrox/Simethicone (Aluminum/Magnesium Susp 30 Ml Udc) 30 ml PO Q4H PRN PRN Reason: GI Upset Stop: 08/15/20 05:56 Bismuth Subsalicylate (Bismuth Subsalicylate Liqd 236 Ml) 15 ml PO PRN PRN PRN Reason: Loose Stool Stop: 08/15/20 05:56 Hydroxyzine HCl (Hydroxyzine Hcl 25 Mg Tab) 50 mg PO HSZ PRN PRN Reason: Insomnia Stop: 08/15/20 05:56 Last Admin: 07/18/20 22:07 Dose: 50 mg Documented by: Hydroxyzine HCl (Hydroxyzine Hcl 25 Mg Tab) 25 mg PO Q4H PRN PRN Reason: Anxiety Stop: 08/15/20 05:56 Magnesium Hydroxide (Magnesium Hydroxide Susp 30 Ml Udc) 30 ml PO DAILY PRN PRN Reason: Constipation Stop: 08/15/20 05:56 Nicotine Polacrilex (Nicotine Polacrilex 2 Mg Gum) 1 piece MT PRN PRN PRN Reason: nicotine cravings Stop: 08/15/20 12:14 Sodium Chloride (Sodium Chloride 0.65% Na Soln 45 Ml (Angelina)) 1 - 2 sprays NA PRN PRN PRN Reason: Nasal Dryness/Congestion Stop: 08/15/20 05:56 Mental Health & Subst Abuse Tx Therapist Name of Therapist: None Dry Cleaner Apprentice Name of Dry Cleaner Apprentice: None Post Discharge Appointments Primary Care Physician Name Of Family Doctor: [facility] Primary Care Time of Appointment with PCP: Follow up as needed Provider Appointment Comment: [facility] Contact Information Discharge Discharge [address]: [address] [place] [address] (1) Depression Depression Type: unspecified Qualified Code(s): F32.9 - Major depressive disorder, single episode, unspecified
[2020-07-19] MEDS: hydrOXYzine HCl 25 MG TAB PO PRN (22:21)
[2020-07-20 06:32] VITALS: TEMP 97.9
--- NOTE | 2020-07-20 11:36 | Discharge Summary ---
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 Larisa Stark Primary Care Provider: PCP,NO Other Interventions: PSY Interdisciplinary Discharge Planning Last Done: 07/19/20 10:00 Coding Level of Care Code 28992 D/C day mgmt > 30 min Diagnoses Suicidal ideation R45.851 Depression F32.9 Depression Type: unspecified
[2020-07-20 17:09] VITALS: BP 106/63; PULSE 70
== END 2020-07-20 17:40 | disposition home or self-care (01) | DRG 881 ==
LOC: ED 00:53 → 3S 05:08